=== PATIENT | female | born 2000 | race Caucasian/White ===

== ENCOUNTER 2021-07-30 09:04 | Emergency (ER) | payer BC, OTHER ==
[~2021-07-30] VITALS: Ht 175.3 cm; Wt 127.3 kg
[~2021-07-30 09:04] MED LIST: ALBU18HF2 INH; NO HOME MEDS; NORG1TAB13 PO
[2021-07-30 09:18] VITALS: BP 117/74
== END 2021-07-30 11:24 | disposition home or self-care (01) ==
LOC: ER 09:04
DX: S93.402A Sprain of unspecified ligament of left ankle, initial encounter (principal); J45.909 Unspecified asthma, uncomplicated; Z90.49 Acquired absence of other specified parts of digestive tract; Z79.899 Other long term (current) drug therapy; W18.39XA Other fall on same level, initial encounter; Y93.89 Activity, other specified; Y92.89 Other specified places as the place of occurrence of the external cause; Y99.8 Other external cause status
CPT/HCPCS: 73610; 73630; 99284; A6449